=== PATIENT | female | born 2000 | race African-American/Black ===

== ENCOUNTER 2025-02-16 16:17 | Inpatient (IN) | payer MEDICAID, OTHER ==
[~2025-02-16] VITALS: Ht 160 cm; Wt 70.6 kg
--- NOTE | 2025-02-16 16:38 | ED.PDOC ---
GI ASSESSMENT HPI Comments This is a 24 year old female presenting to the ED with chief complaint of abdominal pain. Patient reports that she has been experiencing severe lower abdominal pain since 1100 this morning. Patient denies any N/V/D, fever, chills, dysuria, hematuria, or flank pain. Patient's LMP was on 01/16/25. Chief Complaint: Abdominal Pain Time Seen by MD: 16:36 Reviewed Notes: Allergies Allergies: Coded Allergies: NO KNOWN ALLERGIES (Unverified , 02/16/25) Information Source: Patient Mode of Arrival: Wheelchair Timing: Hours Duration: Since onset Prehospital treatment: None Quality: Sharp Vomitus: None Stool: Normal Severity: Moderate Recent: None Recent Hx of: None Pain Location: Diffuse Modifying Factors: Nothing Associated sign and symptoms: Abdominal Pain Past Medical History PAST MEDICAL HISTORY: Denies Surgical History: Denies all surgeries TECHNICAL AID History: No Pertinent TECHNICAL AID History Family History Family History: Reviewed,noncontributory to illness Social History Smoker: Non-Smoker Alcohol: Denies ETOH Use Drugs: Denies Drug Use Lives In: Home Constitutional: denies: chills, diaphoresis, fatigue, fever, malaise, sweats, weakness, others EENTM: denies: blurred vision, double vision, ear bleeding, ear discharge, ear drainage, ear pain, ear ringing, eye pain, eye redness, hearing loss, mouth pain, mouth swelling, nasal discharge, nose bleeding, nose congestion, nose pain, photophobia, tearing, throat pain, throat swelling, voice changes, others Respiratory: denies: cough, hemoptysis, orthopnea, SOB at rest, shortness of breath, SOB with excertion, stridor, wheezing, others Cardiovascular: denies: chest pain, dizzy spells, diaphoresis, Dyspnea on exertion, edema, irregular heart beat, left arm pain, lightheadedness, palpitations, PND, syncope, others Gastrointestinal: reports: abdominal pain; denies: abdomen distended, blood streaked bowels, constipated, diarrhea, dysphagia, difficulty swallowing, hematemesis, melena, nausea, poor appetite, poor fluid intake, rectal bleeding, rectal pain, vomiting, others Genitourinary: denies: abnormal vagina bleeding, burning, dyspareunia, dysuria, flank pain, frequency, hematuria, incontinence, pain, , vagina discharge, urgency, others Neurological: denies: dizziness, fainting, headache, left sided numbness, left sided weakness, numbness, paresthesia, pre-existing deficit, right sided numbness, right sided weakness, seizure, speech problems, tingling, tremors, weakness, others Musculoskeletal: denies: back pain, gout, joint pain, joint swelling, muscle pain, muscle stiffness, neck pain, others Integumetry: denies: bruises, change in color, change in hair/nails, dryness, laceration, lesions, lumps, rash, wounds, others Allergic/Immunocompromised: denies: Difficulty Healing, Frequent Infections, Hives, Itching, others Hematologic/Lymphatic: denies: anemia, blood clots, easy bleeding, easy bruising, swollen glands, others Endocrine: denies: excessive hunger, excessive sweating, excessive thirst, excessive urination, flushing, intolerance to cold, intolerance to heat, unexplained weight gain, unexplained weight loss, others Psychiatric: denies: anxiety, bipolar disorder, depression, hopeless, panic disorder, schizophrenia, sleepless, suicidal, others All Other Systems: Reviewed and Negative Physical Exam General Appearance: Moderate Distress, Normal HEENT: Normal ENT Inspection, PERRL/EOMI Neck: Full Range of Motion, Non-Tender, Normal, Normal Inspection Respiratory: Chest Non-Tender, Lungs Clear, No Accessory Muscle Use, No Respiratory Distress, Normal Breath Sounds Cardiovascular: Irregular, No Edema, No JVD, No Murmur, No Gallop, Normal Peripheral Pulses, Regular Rate/Rhythm Breast Exam: Deferred Gastrointestinal: Diffuse, Distended, No Organomegaly, No Pulsatile Mass, Normal Bowel Sounds, RLQ, Tenderness Genitalia: Deferred Pelvic: Deferred Rectal: Deferred Extremities: No calf tenderness, Normal capillary refill, Normal inspection, Normal range of motion, Non-tender, No pedal edema Neurologic: Alert, production machinist II-XII nml as Tested, No Motor Deficits, Normal Affect, Normal Mood, No Sensory Deficits Cerebellar Function: Normal Reflexes: Normal Skin: Dry, Normal Color, Warm Peripheral Pulses: 1+ carotid (R), 1+ carotid (L) Lymphatic: No Adenopathy Was a procedure done? Was a procedure done?: No GI differential Dx Differential Diagnosis: Appendicitis, Cholangitis, Constipation, Diverticular disease, Ectopic , Gastritis/PUD, Gastroenteritis, Inflammatory BD, Pancreatitis, UTI, Urolithiasis, Dehydration, Diabetes/ DKA, Drug toxicity, Electrolyte Imbalance, Food Poisoning, , Ischemic Bowel, Anemia X-Ray, Labs, Meds, VS Vital Signs Date Time Temp Pulse Resp B/P (MAP) Pulse Ox O2 Delivery O2 Flow Rate FiO2 02/16/25 22:37 90 16 98 Room Air* 0 21 02/16/25 22:08 90 16 104/69 02/16/25 22:03 90 16 104/69 (81) 98 02/16/25 16:22 98.3 116 16 94/64 96 98.3 Lab Test 02/16/25 16:49 Range/Units White Blood Count 16.4 H 4.4-10.8 10^3/uL Red Blood Count 4.90 4.0-5.20 10^6/uL Hemoglobin 13.8 12.2-16.2 g/dL Hematocrit 40.1 36.0-46.0 % Mean Corpuscular Volume 81.8 80.0-100.0 fL Mean Corpuscular Hemoglobin 28.2 28.0-32.0 pg Mean Corpuscular Hemoglobin Concent 34.4 32.0-36.0 g/dL Red Cell Distribution Width 14.0 11.8-14.3 % Platelet Count 423 140-450 10^3/uL Mean Platelet Volume 7.0 6.9-10.8 fL Neutrophils (%) (Auto) 82.0 H 37.0-80.0 % Lymphocytes (%) (Auto) 10.9 10.0-50.0 % Monocytes (%) (Auto) 5.4 0.0-12.0 % Eosinophils (%) (Auto) 1.2 0.0-7.0 % Basophils (%) (Auto) 0.5 0.0-2.0 % Neutrophils # (Auto) 13.4 H 1.6-8.6 10 ^3/uL Lymphocytes # (Auto) 1.8 0.4-5.4 10 ^3/uL Monocytes # (Auto) 0.9 0-1.3 10 ^3/uL Eosinophils # (Auto) 0.2 0-0.8 10 ^3/uL Basophils # (Auto) 0.1 0-0.2 10 ^3/uL Nucleated Red Blood Cells 0.0 % Sodium Level 139 136-145 mmol/L Potassium Level 4.2 3.5-5.1 mmol/L Chloride Level 108 H 98-107 mmol/L Carbon Dioxide Level 20 20-31 mmol/L Anion Gap 11 5-15 Blood Urea Nitrogen 10 9-23 mg/dL Creatinine 0.82 0.550-1.02 mg/dL Glomerular Filtration Rate Calc 102 >90 mL/min BUN/Creatinine Ratio 12.2 10.0-20.0 Serum Glucose 99 74-106 mg/dL Calcium Level 9.4 8.7-10.4 mg/dL Magnesium Level 1.9 1.6-2.6 mg/dL Total Bilirubin 0.4 0.2-1.0 mg/dL Aspartate Amino Transferase (AST) 16 13-40 U/L Alanine Aminotransferase (ALT) 17 7-40 U/L Alkaline Phosphatase 64 46-116 U/L Total Protein 7.3 5.7-8.2 g/dL Albumin 4.6 3.2-4.8 g/dL Lipase 34 12-53 U/L Beta HCG, Quantitative 0.3 L 1.5-4.2 mIU/mL Current Medications Medications (Trade) Dose Ordered Sig/Kamala Route Start Time Stop Time Status Last Admin Metoclopramide HCl (Reglan Injection) 10 mg ONCE ONCE IV 02/16/25 16:45 02/16/25 16:46 DC 02/16/25 22:07 Hydromorphone HCl (Dilaudid Injection) 0.5 mg ONCE ONCE IV 02/16/25 16:45 02/16/25 16:46 DC 02/16/25 22:08 X-Ray, Labs, Meds, VS Comment PATIENT CAME TO THE HOSPITAL WITH SEVERE ABDOMINAL PAIN DATA STILL PENDING DR. DUMONT TO FOLLOW UP Time of 1ST Reevaluation: 17:36 Reevaluation 1ST: Unchanged Time of 2ND Reevaluation: 18:01 Reevaluation 2ND: Unchanged Patient Education/Counseling: Diagnosis, Treatment, Prognosis Family Education/Counseling: Diagnosis, Treatment, Prognosis, No Family Present SEPSIS Sepsis Screen Date sepsis recognized/suspect: Feb 16, 2025 Time Sepsis recognized/suspect: 1624 Recent Procedure: No On Antibiotic Therapy: No Respiratory Rate >20: No Heart Rate >90: Yes Temp<36 C (96.8 F) or >38.3 C: No SBP <90 or MAP <65 mmHG: No New Acute Mental Status Change: No Is the patient on CPAP, BIPAP,: No Physician Orders Heplock Iv (02/16/25 16:36) Blood Pressure (02/16/25 16:36) Ct Ab Pel With Iv Con Only (02/16/25 22:45) Npo After Midnight (02/17/25 00:23) Npo (Nothing By Mouth) Diet (02/18/25 Breakfast) Zosyn Extended Infusion (02/17/25 00:30) Vital Signs Date Time Temp Pulse Resp B/P (MAP) Pulse Ox O2 Delivery O2 Flow Rate FiO2 02/16/25 22:37 90 16 98 Room Air* 0 21 02/16/25 22:08 90 16 104/69 02/16/25 22:03 90 16 104/69 (81) 98 02/16/25 16:22 98.3 116 16 94/64 96 98.3 Laboratory Tests Test 02/16/25 16:49 White Blood Count 16.4 10^3/uL (4.4-10.8) H Medications Medications Dose Ordered Sig/Kamala Route Start Time Stop Time Status Last Admin Dose Admin Hydromorphone HCl 0.5 mg ONCE ONCE IV 02/16/25 16:45 02/16/25 16:46 DC 02/16/25 22:08 Metoclopramide HCl 10 mg ONCE ONCE IV 02/16/25 16:45 02/16/25 16:46 DC 02/16/25 22:07 Departure 1 Departure Time of Disposition: 00:24 Impression: Primary Impression: Acute abdominal pain Additional Impression: Acute appendicitis Disposition: ADMITTED INPATIENT Admit to: Med Surg Condition: Guarded Discharged With: Self Comments CT and lab results reviewed. White blood cell count high at 16.4. CT of the abdomen and pelvis suggest acute appendicitis. Patient was given IV fluids and Zofran. Patient is NPO after midnight. Patient will need admission for supportive care and further workup. Patient will need General surgery consultation for possible appendectomy Critical Care Note Critical Care Time?: Yes (35 min-critical care time only) Critical care comment: Total critical care time: Approximately 36 minutes Due to a high probability of clinically significant, life threatening deterioration, the patient required my highest level of preparedness to intervene emergently and I personally spent this critical care time directly and personally managing the patient. This critical care time included obtaining a history; examining the patient; pulse oximetry; ordering and review of studies; arranging urgent treatment with development of a management plan; evaluation of patient's response to treatment; frequent reassessment; and, discussions with other providers. This critical care time was performed to assess and manage the high probability of imminent, life-threatening deterioration that could result in multi-organ failure. It was exclusive of separately billable procedures and treating other patients. Stability Stability form required: No Heart Score Heart Score: Heart Score Response (Comments) Value History N/A 0 EKG N/A 0 Age N/A 0 Risk Factors N/A 0 Troponin N/A 0 Total 0 I personally scribed for TONY COLLAZO MD ([email or web address]) on 02/16/25 at 16:38. Electronically submitted by Tanner Bah ([email or web address]). TONY COLLAZO MD Feb 16, 2025 16:38 MIKEY DUMONT MD Feb 17, 2025 00:26
[2025-02-16] MEDS ORDERED: SODIUM CHLORIDE 0.9% 1,000 ML IV ONE (16:45)
[2025-02-16 17:02] LABS: Hematocrit 40.1 % (36.0-46.0); Hemoglobin 13.8 g/dL (12.2-16.2); Mean Corpuscular Hemoglobin 28.2 pg (28.0-32.0); Mean Corpuscular Volume 81.8 fL (80.0-100.0); Nucleated Red Blood Cells % 0.0 %
[2025-02-16 17:22] LABS: Alanine Aminotransferase 17 U/L (7-40); Albumin 4.6 g/dL (3.2-4.8); Alkaline Phosphatase 64 U/L (46-116); Anion Gap 11 (5-15); BUN/Creatinine Ratio 12.2 (10.0-20.0); Blood Urea Nitrogen 10 mg/dL (9-23); Calcium 9.4 mg/dL (8.7-10.4); Carbon Dioxide 20 mmol/L (20-31); Glucose 99 mg/dL (74-106); Lipase 34 U/L (12-53); Magnesium 1.9 mg/dL (1.6-2.6); Potassium 4.2 mmol/L (3.5-5.1); Sodium 139 mmol/L (136-145); Total Protein 7.3 g/dL (5.7-8.2)
[2025-02-16 17:23] LABS: Bilirubin, Total 0.4 mg/dL (0.2-1.0); Chloride 108 mmol/L (98-107)
[2025-02-16] MEDS: METOCLOPRAMIDE HCL 5MG/ml INJ 2ml VIAL IV ONE (22:07)
[2025-02-16] MEDS: HYDROmorphone HCL 2 MG/ML VL/or syr IV ONE (22:08)
[2025-02-16 22:37] VITALS: PULSE 90; RESP 16; O2SAT 98
[2025-02-17] VITALS (7 sets, daily range): BP systolic 95–112; BP diastolic 65–81; PULSE 70–88; RESP 16–18; TEMP 97.7–98.3; O2SAT 96–99
--- NOTE | 2025-02-17 00:10 | DVH ---
CLINICAL HISTORY: abd pain TECHNIQUE: CT of the abdomen and pelvis was performed without intravenous contrast. 100 mL Omnipaque 300 injected This exam was performed according to our departmental dose optimization program. Up-to-d ate CT equipment and radiation dose reduction techniques are utilized as appropriate. 6.11 CTDI: 6.11 DLP: 345.22 WID: COMPARISON: None FINDINGS: Lower Thorax: Unremarkable. Liver and Biliary system: Mild hepatomegaly measuring 18 cm craniocaudal. Otherwise unremarkable. Spleen: Unremarkable. Adrenal Glands and Kidneys: Unremarkable. Pancreas and Retroperitoneum: Unremarkable. Aorta and Major Vessels: Unremarkable. Bowel, Mesentery and Peritoneal space: Normal caliber small and large bowel. There is a hyperemic and mildly dilated appendix on series 2, image 63 and series 601, image 37. Scattered fluid containing p redominantly distal small bowel loops. There is no free air or fluid collection. There is mild enhanc ement of fluid-filled pelvic small bowel loops. Mild ascites predominantly in the pelvis. Pelvis: Unremarkable. Abdominal wall and Osseous Structures: No destructive osseous lesion. IMPRESSION: 1. Thickened and hyperemic appendix which is mildly dilated suggesting acute appendicitis. 2. Scattered fluid-filled and mild enhancement of pelvic small bowel loops which may be reactive or r elated to enteritis. 3. Mild ascites. 4. Mild hepatomegaly.
[2025-02-17] MEDS: IOHEXOL 300 MG/ML 100ML BOTTLE IJ ONE (01:38)
--- NOTE | 2025-02-17 04:30 | DVHHP2 ---
History of Present Illness Reason for Visit: Abdominal pain History of Present Illness 24-year-old female presents for evaluation of abdominal pain. Patient endorses a one day history of right lower quadrant sharp abdominal pain. Denies nausea or vomiting. States having intermittent chills. Currently rates the pain at 7/10 intensity. Past Medical History Denies Past Surgical History Denies Family History Noncontributory Smoke: No ALCOHOL: none Drugs: None Lives: with Family Review of Systems Review of Systems Review of systems are currently negative otherwise addressed in HPI. Allergies: Coded Allergies: NO KNOWN ALLERGIES (Unverified , 02/16/25) Exam Vital Signs Vital Signs Date Time Temp Pulse Resp B/P (MAP) Pulse Ox O2 Delivery O2 Flow Rate FiO2 02/16/25 22:37 90 16 98 Room Air* 0 21 02/16/25 22:08 104/69 02/16/25 16:22 98.3 98.3 Exam Gen: 24-year-old female in mild distress Skin: Warm, dry, normal color and texture, no rash. HEENT: Normocephalic atraumatic, mucous membranes moist and pink. Neck: Cervical and supraclavicular nodes normal without enlargement, trachea is midline, thyroid gland is normal without masses. Pulmonary: Clear to auscultation and percussion bilaterally. Cardiac: Regular rate and rhythm. No murmur Abdomen: Soft, right lower quadrant tenderness, nondistended, bowel sounds present all 4 quadrants, no guarding, no rigidity, no organomegaly. Extremities: No cyanosis, clubbing, no edema Neuro: Cranial nerves II through XII grossly intact, normal affect and speech, no focal motor deficits. Labs/Xrays AGE / SEX: 24 / F ADM STATUS: DEP ER SERVICE ORDERING PHYSICIAN: MIKEY DUMONT MD PROCEDURE(s): ABPLIV - CT AB PEL WITH IV CON ONLY REASON: abd pain ORDER NUMBER(s): [id number], ACCESSION NUMBER(s): [id number] CLINICAL HISTORY: abd pain TECHNIQUE: CT of the abdomen and pelvis was performed without intravenous contrast. 100 mL Omnipaque 300 injected This exam was performed according to our departmental dose optimization program. Up-to-date CT equipment and radiation dose reduction techniques are utilized as appropriate. 6.11 CTDI: 6.11 DLP: 345.22 WID: COMPARISON: None FINDINGS: Lower Thorax: Unremarkable. Liver and Biliary system: Mild hepatomegaly measuring 18 cm craniocaudal. Otherwise unremarkable. Spleen: Unremarkable. Adrenal Glands and Kidneys: Unremarkable. Pancreas and Retroperitoneum: Unremarkable. Aorta and Major Vessels: Unremarkable. Bowel, Mesentery and Peritoneal space: Normal caliber small and large bowel. There is a hyperemic and mildly dilated appendix on series 2, image 63 and series 601, image 37. Scattered fluid containing predominantly distal small bowel loops. There is no free air or fluid collection. There is mild enhancement of fluid-filled pelvic small bowel loops. Mild ascites predominantly in the pelvis. Pelvis: Unremarkable. Abdominal wall and Osseous Structures: No destructive osseous lesion. IMPRESSION: 1. Thickened and hyperemic appendix which is mildly dilated suggesting acute appendicitis. 2. Scattered fluid-filled and mild enhancement of pelvic small bowel loops which may be reactive or related to enteritis. 3. Mild ascites. 4. Mild hepatomegaly. Labs Test 02/16/25 16:49 Range/Units White Blood Count 16.4 H 4.4-10.8 10^3/uL Red Blood Count 4.90 4.0-5.20 10^6/uL Hemoglobin 13.8 12.2-16.2 g/dL Hematocrit 40.1 36.0-46.0 % Mean Corpuscular Volume 81.8 80.0-100.0 fL Mean Corpuscular Hemoglobin 28.2 28.0-32.0 pg Mean Corpuscular Hemoglobin Concent 34.4 32.0-36.0 g/dL Red Cell Distribution Width 14.0 11.8-14.3 % Platelet Count 423 140-450 10^3/uL Mean Platelet Volume 7.0 6.9-10.8 fL Neutrophils (%) (Auto) 82.0 H 37.0-80.0 % Lymphocytes (%) (Auto) 10.9 10.0-50.0 % Monocytes (%) (Auto) 5.4 0.0-12.0 % Eosinophils (%) (Auto) 1.2 0.0-7.0 % Basophils (%) (Auto) 0.5 0.0-2.0 % Neutrophils # (Auto) 13.4 H 1.6-8.6 10 ^3/uL Lymphocytes # (Auto) 1.8 0.4-5.4 10 ^3/uL Monocytes # (Auto) 0.9 0-1.3 10 ^3/uL Eosinophils # (Auto) 0.2 0-0.8 10 ^3/uL Basophils # (Auto) 0.1 0-0.2 10 ^3/uL Nucleated Red Blood Cells 0.0 % Sodium Level 139 136-145 mmol/L Potassium Level 4.2 3.5-5.1 mmol/L Chloride Level 108 H 98-107 mmol/L Carbon Dioxide Level 20 20-31 mmol/L Anion Gap 11 5-15 Blood Urea Nitrogen 10 9-23 mg/dL Creatinine 0.82 0.550-1.02 mg/dL Glomerular Filtration Rate Calc 102 >90 mL/min BUN/Creatinine Ratio 12.2 10.0-20.0 Serum Glucose 99 74-106 mg/dL Calcium Level 9.4 8.7-10.4 mg/dL Magnesium Level 1.9 1.6-2.6 mg/dL Total Bilirubin 0.4 0.2-1.0 mg/dL Aspartate Amino Transferase (AST) 16 13-40 U/L Alanine Aminotransferase (ALT) 17 7-40 U/L Alkaline Phosphatase 64 46-116 U/L Total Protein 7.3 5.7-8.2 g/dL Albumin 4.6 3.2-4.8 g/dL Lipase 34 12-53 U/L Beta HCG, Quantitative 0.3 L 1.5-4.2 mIU/mL SEPSIS Sepsis Screen Date sepsis recognized/suspect: Feb 16, 2025 Time Sepsis recognized/suspect: 2236 Recent Procedure: No On Antibiotic Therapy: No Respiratory Rate >20: No Heart Rate >90: No Temp<36 C (96.8 F) or >38.3 C: No SBP <90 or MAP <65 mmHG: No New Acute Mental Status Change: No Is the patient on CPAP, BIPAP,: No Physician Orders Ct Ab Pel With Iv Con Only (02/16/25 22:45) Npo (Nothing By Mouth) Diet (02/18/25 Breakfast) Admit (02/17/25 04:16) * Surgical Consult (02/17/25 ) Zosyn Extended Infusion (02/17/25 06:00) NS (02/17/25 04:30) PTPTT (02/17/25 04:23) Type And Screen (02/17/25 04:23) Chest Xray 1 View (02/17/25 04:23) Complete Blood Count (02/17/25 04:23) Basic Metabolic Panel (02/17/25 04:23) Ondansetron Hcl (Zofran) (02/17/25 04:30) Condition: Stable (02/17/25 04:23) Bedrest With Bathroom Privileg (02/17/25 04:23) Morphine Sulfate Injection (02/17/25 04:30) Vital Signs Date Time Temp Pulse Resp B/P (MAP) Pulse Ox O2 Delivery O2 Flow Rate FiO2 02/16/25 22:37 90 16 98 Room Air* 0 21 02/16/25 22:08 90 16 104/69 02/16/25 22:03 90 16 104/69 (81) 98 Laboratory Tests Test 02/16/25 16:49 White Blood Count 16.4 10^3/uL (4.4-10.8) H Medications Medications Dose Ordered Sig/Kamala Route Start Time Stop Time Status Last Admin Dose Admin Hydromorphone HCl 0.5 mg ONCE ONCE IV 02/16/25 16:45 02/16/25 16:46 DC 02/16/25 22:08 0.5 MG Metoclopramide HCl 10 mg ONCE ONCE IV 02/16/25 16:45 02/16/25 16:46 DC 02/16/25 22:07 10 MG Assessment/Plan Assessment/Plan Assessment Acute abdominal pain Acute appendicitis Leukocytosis Plan Admit the patient to [facility] to the hospitalist Surgical consultation NPO Zosyn Maintenance IV fluids Pain management Continue treatment per orders. Plan discussed with: Patient My Orders Orders - EARL SHANNON AGACNP Procedure Category Date Status Time Admit ADMIT 02/17/25 Transmitted 04:16 * Surgical Consult CONS 02/17/25 Verified Zosyn Extended PHA 02/17/25 Verified Infusion 06:00 NS PHA 02/17/25 Verified 04:30 PTPTT LAB 02/17/25 Verified 04:23 Type And Screen BBK 02/17/25 Verified 04:23 Chest Xray 1 View XY 02/17/25 Verified 04:23 Complete Blood Count LAB 02/17/25 Verified 04:23 Basic Metabolic Panel LAB 02/17/25 Verified 04:23 Ondansetron Hcl PHA 02/17/25 Verified (Zofran) 04:30 Condition: Stable BETHANY 02/17/25 Verified 04:23 Bedrest With Bathroom BETHANY 02/17/25 Verified Privileg 04:23 Morphine Sulfate PHA 02/17/25 Verified Injection 04:30 Date of Service: Feb 17, 2025 Billing Provider: EARL SHANNON Common Visit Codes: [id number] INP/OBS CARE (HIGH) EARL SHANNON Feb 17, 2025 04:30
[2025-02-17] MEDS: PIPERACILLIN-TAZOB 3.375GM 100 ML IV ONE (04:41)
[2025-02-17] MEDS: MORPHINE SULFATE INJ 2 MG/ml SYRG IV PRN (05:03)
--- NOTE | 2025-02-17 05:03 | DVH ---
CHEST RADIOGRAPH Indication: Pain Technique: Single frontal view of the chest was obtained COMPARISON: None FINDINGS: Lines and Tubes: None Lungs: Clear Pleura: No effusion. No pneumothorax. Cardiomediastinal contours: Unremarkable Bones: Unremarkable IMPRESSION: No acute disease.
[2025-02-17] MEDS: ONDANSETRON HCL 4 MG/2 ML VIAL IV PRN (05:05)
[2025-02-17] MEDS: SODIUM CHLORIDE 0.9% 1,000 ML IV ONE (05:17)
[2025-02-17] MEDS: PIPERACILLIN-TAZOB 3.375GM 100 ML IV SCH (05:17)
[2025-02-17 05:49] LABS: Anion Gap 9 (5-15); Carbon Dioxide 24 mmol/L (20-31); Chloride 105 mmol/L (98-107); Hematocrit 39.4 % (36.0-46.0); Hemoglobin 13.4 g/dL (12.2-16.2); Mean Corpuscular Hemoglobin 28.1 pg (28.0-32.0); Mean Corpuscular Volume 82.8 fL (80.0-100.0); Nucleated Red Blood Cells % 0.0 %; Potassium 3.6 mmol/L (3.5-5.1); Sodium 138 mmol/L (136-145)
[2025-02-17 05:50] LABS: Calcium 9.3 mg/dL (8.7-10.4)
[2025-02-17 05:55] LABS: Glucose 85 mg/dL (74-106)
[2025-02-17 05:59] LABS: INR 1.05 (0.9-1.15); Partial Thromboplastin Time 30.8 SEC (24.5-34.5); Prothrombin Time 11.1 sec (9.3-11.8)
[2025-02-17 06:02] LABS: BUN/Creatinine Ratio 7.2 (10.0-20.0); Blood Urea Nitrogen < 5 mg/dL (9-23)
[2025-02-17] MEDS: KETOROLAC TROMETH 30 MG/ML 1ML VIAL IV PRN (09:09)
--- NOTE | 2025-02-17 10:05 | DVHINCON2 ---
Date of service: Feb 17, 2025 Reason for Consultation appendicitis History of Present Illness HPI 24 year old presented to the Er with complaint of right lower quadrant pain . The patient states the pain started yesterday at 11am and progressively got worse. She states the pain is constant 10/10 associated with nausea. Home Meds No Active Prescriptions or Reported Meds Chief Complaint of Abdominal/F: Abdominal pain, Nausea Abdominal Pain Radiation: RLQ Past Medical History Cardiac: No pertinent Hx Pulmonary: No pertinent Hx Central Nervous System: No pertinent Hx GI: No pertinent Hx Hemotology/Oncology: No pertinent Hx Hepatobiliary: No pertinent Hx Psychiatric: No pertinent Hx Musculoskeletal: No pertinent Hx Rheumotologic: No pertinent Hx Infectious Disease: No peritnent Hx ENT: No pertinent Hx Renal/: No pertinent Hx Endocrine: No pertinent Hx Dermatology: No pertinent Hx Past Surgical History: No pertinent Hx Patient Family History: Patient reports no known family medical history. Smoker: No Hx (Negative) Alocohol: None Drugs: None Lives with: With family Review of Systems Constitutional: No symptom reported Ears, Nose, & Throat: No symptom reported Eyes: No symptom reported Pulmonary/Respiratory: No symptom reported Cardiovascular: No symptom reported Gastrointestinal: Nausea, Abdominal Pain Genitourinary: No symptom reported Musculoskeletal: No symptom reported Skin: No symptom reported Psychiatric: No symptom reported Endocrine: No symptom reported Hemotologic/Lymphatic: No symptom reported H&P Exam Vital Signs Vital Signs Date Time Temp Pulse Resp B/P (MAP) Pulse Ox O2 Delivery O2 Flow Rate FiO2 02/17/25 08:56 97.7 77 16 95/65 (75) 99 97.7 02/16/25 22:37 Room Air* 0 21 General Appeara: Well developed, Well nourished, Normal Appearance Head Exam: Normal inspection Neck Exam: Normal inspection Eye Exam: bilateral eye PERRL Pulmonary/Respiratory: Normal inspection, Normal breath sounds Cardiovascular/Chest: Normal inspection, Regular rate, Normal Rhythm Abdominal Exam: Normal bowel sounds Abdominal Pain Onset Location: RLQ Neuro/Mental St: Alert, Oriented Appearance: Appropriate appearance Eye contact/ Speech: Cooperative, Good eye contact, Normal speech Skin Exam: Normal inspection Labs/Xrays Labs Test 02/17/25 05:00 02/16/25 16:49 Range/Units White Blood Count 13.8 H 4.4-10.8 10^3/uL Red Blood Count 4.76 4.0-5.20 10^6/uL Hemoglobin 13.4 12.2-16.2 g/dL Hematocrit 39.4 36.0-46.0 % Mean Corpuscular Volume 82.8 80.0-100.0 fL Mean Corpuscular Hemoglobin 28.1 28.0-32.0 pg Mean Corpuscular Hemoglobin Concent 34.0 32.0-36.0 g/dL Red Cell Distribution Width 14.2 11.8-14.3 % Platelet Count 367 140-450 10^3/uL Mean Platelet Volume 7.1 6.9-10.8 fL Neutrophils (%) (Auto) 78.2 37.0-80.0 % Lymphocytes (%) (Auto) 13.9 10.0-50.0 % Monocytes (%) (Auto) 6.8 0.0-12.0 % Eosinophils (%) (Auto) 1.0 0.0-7.0 % Basophils (%) (Auto) 0.1 0.0-2.0 % Neutrophils # (Auto) 10.8 H 1.6-8.6 10 ^3/uL Lymphocytes # (Auto) 1.9 0.4-5.4 10 ^3/uL Monocytes # (Auto) 0.9 0-1.3 10 ^3/uL Eosinophils # (Auto) 0.1 0-0.8 10 ^3/uL Basophils # (Auto) 0 0-0.2 10 ^3/uL Nucleated Red Blood Cells 0.0 % Prothrombin Time 11.1 9.3-11.8 sec Prothrombin Time INR 1.05 0.9-1.15 Activated Partial Thromboplast Time 30.8 24.5-34.5 SEC Sodium Level 138 136-145 mmol/L Potassium Level 3.6 3.5-5.1 mmol/L Chloride Level 105 98-107 mmol/L Carbon Dioxide Level 24 20-31 mmol/L Anion Gap 9 5-15 Blood Urea Nitrogen < 5 L 9-23 mg/dL Creatinine 0.69 0.550-1.02 mg/dL Glomerular Filtration Rate Calc 123 >90 mL/min BUN/Creatinine Ratio 7.2 L 10.0-20.0 Serum Glucose 85 74-106 mg/dL Calcium Level 9.3 8.7-10.4 mg/dL Thyroid Stimulating Hormone (TSH) 0.82 0.55-4.78 uIU/mL Magnesium Level 1.9 1.6-2.6 mg/dL Total Bilirubin 0.4 0.2-1.0 mg/dL Aspartate Amino Transferase (AST) 16 13-40 U/L Alanine Aminotransferase (ALT) 17 7-40 U/L Alkaline Phosphatase 64 46-116 U/L Total Protein 7.3 5.7-8.2 g/dL Albumin 4.6 3.2-4.8 g/dL Lipase 34 12-53 U/L Beta HCG, Quantitative 0.3 L 1.5-4.2 mIU/mL Assessment/Plan Plan patient complaint of abdominal pain which started yesterday associated with nausea. right lower quadrant tender to palpation denies nausea or vomiting at this time reviewed notes and image reports Plan: Laparoscopic possibly open appendectomy explained to patient risks and complications in detail all questions answered Plan discussed with: Patient, Other (Dr. Brito) Visit Coding Surgery Date of Service if different f: Feb 17, 2025 Billing Provider: JAYSHREE BRITO MD Surgery Visit Codes: 62113 - INP CONSULT <80 MIN JOJO WALDEN [employer] Feb 17, 2025 10:05
[2025-02-17] MEDS: SODIUM CHLORIDE 0.9% 500 ML IV ONE (13:41)
[2025-02-17] MEDS: SODIUM CHLORIDE 0.9% 1,000 ML IV SCH (13:41)
[2025-02-17 14:09] LABS: Urine Protein, UAD TRACE (Negative)
[2025-02-17] MEDS ORDERED: ONDANSETRON HCL 4 MG/2 ML VIAL ONE (14:12)
[2025-02-17] MEDS ORDERED: PROPOFOL 10 MG/ML 20 ML IV ONE (14:12)
[2025-02-17] MEDS ORDERED: ROCURONIUM 10MG/ML 10ML VIAL IV ONE (14:12)
[2025-02-17] MEDS ORDERED: LIDOCAINE 2% (LOCAL ANESTH.) PF 5ml SDV ONE (14:12)
[2025-02-17] MEDS ORDERED: MIDAZOLAM HCL 2MG/2ML 2ml VIAL (1mg/ml) ONE (14:12)
[2025-02-17] MEDS ORDERED: HYDROmorphone HCL 2 MG/ML VL/or syr ONE (14:12)
[2025-02-17] MEDS ORDERED: KETAMINE 50mg/ML 1ml syringe ONE (14:12)
[2025-02-17] MEDS ORDERED: fentaNYL CITRATE 100 MCG/2 ML VL ONE (14:12)
[2025-02-17] MEDS: ceFAZolin 2 GM/D5W50ml 50 ML IV ONE (14:45)
[2025-02-17] MEDS ORDERED: SUGAMMADEX 200mg/2ml Vial (100MG/ML) IV ONE (15:13)
[2025-02-17] MEDS: Lidocaine/Epinephrine 1%-1:100,000 30ML VL ONE (15:15)
[2025-02-17] MEDS: BUPIVACAINE 0.5% MPF INJ 30ML SDV IJ ONE (15:15)
[2025-02-17] MEDS ORDERED: HYDROmorphone HCL 2 MG/ML VL/or syr IV PRN (15:45)
[2025-02-17] MEDS ORDERED: MORPHINE SULFATE 4 MG/ML SYR/VIAL IV PRN (15:45)
[2025-02-17] MEDS: KETOROLAC TROMETH 30 MG/ML 1ML VIAL IV ONE (15:45)
[2025-02-17] MEDS ORDERED: METOCLOPRAMIDE HCL 5MG/ml INJ 2ml VIAL IV PRN (15:45)
--- NOTE | 2025-02-17 15:52 | DVHPNRES ---
Progress Note Date Seen: Feb 17, 2025 Resident Creating Document: JOSSY TORRES RESIDENT Medical Necessity Reason Pt with a Central, PICC or Fol: No Subjective Review of Systems Rosie Vegas is a 24-year old female presented to the ER with right lower quadrant pain radiatng to the umbilicus and left lower abdomen, associated with nausea, increased by movements, coughing and respiration. She reports having burning sensation during urination and frequency as well. She denies any chest pain, SOB, fever or any other complaints today. PMH: Denies PSH: Denies Family history: Non-contributory Smoking, alcohol, drugs: Never The patient was seen and examined at bedside. Overnight events were reviewed. Objective vital signs Vital Sign Date Time Temp Pulse Resp B/P (MAP) Pulse Ox O2 Delivery O2 Flow Rate FiO2 02/17/25 13:00 98.1 73 16 102/65 (77) 99 98.1 02/16/25 22:37 Room Air* 0 21 medications Current Medications Medications Dose Ordered Sig/Akmala Route Start Time Stop Time Status Last Admin Dose Admin Piperacillin Sod/ Tazobactam Sod 100 ml @ 25 mls/hr Q8H IV 02/17/25 05:00 02/17/25 05:17 25 MLS/HR Ondansetron HCl 4 mg Q4HP PRN IV 02/17/25 04:30 02/17/25 05:05 4 MG Morphine Sulfate 2 mg Q4HPRN PRN IV 02/17/25 04:30 02/17/25 05:03 2 MG Sodium Chloride 1,000 ml @ 75 mls/hr [id number] IV 02/17/25 08:00 02/17/25 13:41 75 MLS/HR Ketorolac Tromethamine 15 mg Q6HPRN PRN IV 02/17/25 08:45 02/20/25 22:00 02/17/25 09:09 15 MG Hydromorphone HCl 0.5 mg Q10M PRN IV 02/17/25 15:45 02/17/25 16:26 Morphine Sulfate 2 mg Q4H PRN IV 02/17/25 15:45 02/17/25 19:46 Hydromorphone HCl 0.25 mg Q10M PRN IV 02/17/25 15:45 02/17/25 16:16 Morphine Sulfate 1 mg Q30M PRN IV 02/17/25 16:27 02/17/25 18:28 Examination Pt is lying on bed General Appearance: Alert, Oriented X3, Cooperative, Mild distress HEENT: Atraumatic, Mucous membranes moist/pink Respiratory: Clear to auscultation, Normal air movement, No added sounds Cardiovascular: Regular rate, Normal S1, Normal S2, No murmurs Abdominal/ : Active bowel sounds, Soft, no distention, diffuse abdominal tenderness more prominent in the hypogastric and right lower of the abdomen. Mcburney's point tenderness and rebound tenderness positive. Rovsing sign is positive. obturator sign positive. Extremities: No edema, Normal pulses, No tenderness/swelling Skin: No Significant rash, except past surgical scars Neuro: Normal speech, sensorimotor deficits none Psych/Mental Status: Mental status NL, Mood NL Nurse was there as joint sealer during examination laboratory and microbiology Laboratory Tests 02/17/25 05:00 Test 02/17/25 05:00 Range/Units Serum Glucose 85 74-106 mg/dL Problem List/Assessment/Plan Problem List/Assessment/Plan Sepsis secondary to appendicitis versus UTI Currently under empiric IV antibiotic (Zosyn) Required IV fluid resuscitation Ordered cultures (blood and urine). Acute abdominal pain due to appendicitis - s/p appendectomy Mild hepatomegaly Mild ascites ruled out. CT abdomen and pelvis: Appendicitis, reactive enteritis, mild hepatomegaly, mild ascites Symptomatic management was done by morphine and ondansetron. Currently under empiric IV antibiotic (Zosyn) Patient was kept NPO, required IV fluid resuscitation. referral specialist consulted: Surgical candidate. Laparoscopy and laparoscopic appendectomy successfully performed 02/17/2025 UTI Urinalysis positive for esterase and presents increased WBCs. Urine culture Currently under empiric IV antibiotic (Zosyn) GI prophylaxis: Pantoprazole DVT prophylaxis: Enoxaparin Diet: NPO, resume diet as per surgery recommendations Goals of care discussed with the patient for more than 27 minutes: Full code status Case discussed with Dr. Bartlett , patient and RN Plan discussed with: Patient, Other (RN) JOSSY TORRES RESIDENT Feb 17, 2025 15:52 NATASHA HONEYCUTT RESIDENT Feb 19, 2025 06:33
--- NOTE | 2025-02-17 15:52 | DVHOP ---
DATE OF SURGERY: 02/17/2025 PREOPERATIVE DIAGNOSIS: Appendicitis. POSTOPERATIVE DIAGNOSIS: Appendicitis. SURGEON: Juan Brito MD WIRE DRAWING DIE MAKER: Uriel Lo. ANESTHESIA: General endotracheal. ANESTHESIOLOGIST: Dr. Vidales. PROCEDURE: Laparoscopy and laparoscopic appendectomy. DESCRIPTION OF PROCEDURE: Under general endotracheal anesthesia with the patient's skin prepped and draped, a supraumbilical incision was made and Veress needle inserted by the hanging drop technique to establish pneumoperitoneum to 15 mmHg pressure by insufflation with carbon dioxide. With the abdomen fully distended, the needle was removed and replaced with a 5 mm trocar port through which a 0-degree laparoscope was inserted and under direct vision, 5 and 10 mm ports inserted through the abdominal wall in the midline. The patient's laparoscopy revealed no obvious unexpected pathology. There was evidence of slight colonic ileus; however, no evidence of small bowel ileus or abscess formation were encountered. The appendix was acutely distended and inflamed. It was placed on tension with a Shazia grasper and traced to its confluence with the cecum, at the base of the appendix at the cecal confluence, it was cross-clamped and divided with an Endo MEHDI stapler equipped with vascular vickie. The fully mobilized appendix and mesoappendix were placed into a specimen extraction bag and removed through the 10 mm port site. Subsequently, right lower quadrant was inspected for hemostasis, which was found to be complete. At the termination of the procedure, there was no evidence of bleeding from either the appendicectomy site or from the port sites. Instrumentation was withdrawn. Pneumoperitoneum was evacuated. Fascial defect was closed using 0 Vicryl. Wounds were approximated using Monocryl sutures, Dermabond glue, and Steri-Strips. The patient tolerated the procedure well and left the operating room in stable condition following an accurate needle and sponge count. The patient's grandmother was thoroughly informed by phone. MD HELLEN Arriaga/CAROLINA TID: [id number] RECEIPT: [id number]
[2025-02-17] MEDS: HYDROmorphone HCL 2 MG/ML VL/or syr IV PRN (16:05)
[2025-02-17] MEDS ORDERED: MORPHINE SULFATE INJ 2 MG/ml SYRG IV PRN (16:27)
[2025-02-18 01:00] VITALS: BP 116/79; PULSE 84; RESP 18; TEMP 98; O2SAT 95
[2025-02-18 05:00] VITALS: BP 103/72; PULSE 89; RESP 18; TEMP 97.6; O2SAT 95
--- NOTE | 2025-02-18 07:17 | DVHPN2 ---
Subjective Date Seen: Feb 18, 2025 Post op day Post op day: 1 Patient reports: No new complaints Nursing reports: No new complaints General: Normal HNT: Normal Cardiovascular: Normal Respiratory: Normal Gastrointestinal: Abdominal Pain Genitourinary: Normal Musculoskeletal: Normal Neurological: Normal Objective Vitals Vital Sign Date Time Temp Pulse Resp B/P (MAP) Pulse Ox O2 Delivery O2 Flow Rate FiO2 02/18/25 05:43 89 18 103/72 02/18/25 05:00 97.6 95 97.6 02/17/25 20:00 Room Air* 0 21 Total Intake and Output 02/17/25 02/17/25 02/18/25 15:00 23:00 07:00 Intake Total 1150 ml 0 ml 240 ml Balance 1150 ml 0 ml 240 ml Medications Current Medications Medications Dose Ordered Sig/Kamala Route Start Time Stop Time Status Last Admin Dose Admin Piperacillin Sod/ Tazobactam Sod 100 ml @ 25 mls/hr Q8H IV 02/17/25 05:00 02/18/25 04:07 25 MLS/HR Ondansetron HCl 4 mg Q4HP PRN IV 02/17/25 04:30 02/17/25 18:05 4 MG Morphine Sulfate 2 mg Q4HPRN PRN IV 02/17/25 04:30 02/18/25 05:13 2 MG Sodium Chloride 1,000 ml @ 75 mls/hr [id number] IV 02/17/25 08:00 02/17/25 20:42 75 MLS/HR Ketorolac Tromethamine 15 mg Q6HPRN PRN IV 02/17/25 08:45 02/20/25 22:00 02/18/25 01:47 15 MG General: Normal, Well developed Head/Eyes: Normal ENT: Normal Neck: Normal Lungs: Normal Cardiovascular: Normal Abdominal: Normal Musculoskeletal: Normal Extremities: Normal Skin: Normal Labs and Microbiology Test 02/18/25 06:35 Range/Units Serum Glucose Pending Ass/Plan Problem List Acute abdominal pain due to appendicitis ruled out. CT abdomen and pelvis: Appendicitis, reactive enteritis, mild hepatomegaly, mild ascites Symptomatic management was done by morphine and ondansetron. Patient was kept NPO, IV fluid was given Zosyn was started. Surgery consult was done. Laparoscopy and laparoscopic appendectomy successfully performed today. Mild hepatomegaly Mild ascites Monitor LFTs Outpatient follow up with GI. GI prophylaxis: Not indicated DVT prophylaxis: Not indicated Diet: NPO, resume diet as per surgery recommendations Goals of care discussed with the patient for more than 27 minutes: Full code status Case discussed with Dr. Bartlett , patient and community leader/Plan 02/18/2025 reports vomiting last night after clear liquids abdomen soft , non distended, appropriately tender passing gas,no BM wounds clean dry and intact Plan: ambulate start with small sips of fluids continue IV antibiotics Prognosis: Good Plan discussed with patient, Nurse , Dr. Brito Visit Coding Surgery Date of Service if different f: Feb 18, 2025 Billing Provider: JAYSHREE BRITO MD Surgery Visit Codes: [id number] INP/OBS CARE(HIGH) JOJO WALDEN ENVIRONMENTAL COMPLIANCE ENGINEER Feb 18, 2025 07:17
[2025-02-18 07:30] LABS: Hematocrit 34.2 % (36.0-46.0); Hemoglobin 12.1 g/dL (12.2-16.2); Mean Corpuscular Hemoglobin 28.8 pg (28.0-32.0); Mean Corpuscular Volume 81.5 fL (80.0-100.0); Nucleated Red Blood Cells % 0.0 %
[2025-02-18 07:35] LABS: Calcium 8.8 mg/dL (8.7-10.4); Chloride 106 mmol/L (98-107); Sodium 139 mmol/L (136-145)
[2025-02-18 07:36] LABS: Anion Gap 9 (5-15); Carbon Dioxide 24 mmol/L (20-31)
[2025-02-18 07:42] LABS: Glucose 74 mg/dL (74-106); Potassium 3.4 mmol/L (3.5-5.1)
[2025-02-18 07:56] LABS: BUN/Creatinine Ratio 6.9 (10.0-20.0); Blood Urea Nitrogen < 5 mg/dL (9-23)
[2025-02-18 08:45] VITALS: BP 105/74; PULSE 73; RESP 16; TEMP 98.7; O2SAT 95
[2025-02-18 12:42] VITALS: BP 109/83; PULSE 85; RESP 16; TEMP 98.1; O2SAT 99
[2025-02-18] MEDS: POTASSIUM CHL 20MEQ/100ML 100 ML IV SCH (14:01)
--- NOTE | 2025-02-18 14:10 | DVHPNRES ---
Progress Note Date Seen: Feb 18, 2025 Resident Creating Document: JOSSY TORRES Medical Necessity Reason Pt with a Central, PICC or Fol: No Subjective Review of Systems The patient was seen and examined at bedside. Overnight events werre reviewed. 24-year-old female, day 1 S/P appendectomy complaining of pain at the surgical site, she is tolerating clear liquid, reports passage of flatus. She reports abdominal binder helps her with the pain. PMH: Nothing significant PSH: None Family history: Non-contributory Smoking, alcohol, drugs: Never Code status: Full code Objective vital signs Vital Sign Date Time Temp Pulse Resp B/P (MAP) Pulse Ox O2 Delivery O2 Flow Rate FiO2 02/18/25 12:42 98.1 85 16 109/83 (92) 99 98.1 02/18/25 07:40 Room Air* 0 21 Total Intake and Output 02/17/25 02/17/25 02/18/25 15:00 23:00 07:00 Intake Total 1150 ml 0 ml 240 ml Balance 1150 ml 0 ml 240 ml medications Current Medications Medications Dose Ordered Sig/Kamala Route Start Time Stop Time Status Last Admin Dose Admin Piperacillin Sod/ Tazobactam Sod 100 ml @ 25 mls/hr Q8H IV 02/17/25 05:00 02/18/25 12:30 25 MLS/HR Ondansetron HCl 4 mg Q4HP PRN IV 02/17/25 04:30 02/18/25 11:05 4 MG Morphine Sulfate 2 mg Q4HPRN PRN IV 02/17/25 04:30 02/18/25 11:04 2 MG Sodium Chloride 1,000 ml @ 75 mls/hr [id number] IV 02/17/25 08:00 02/18/25 10:50 75 MLS/HR Ketorolac Tromethamine 15 mg Q6HPRN PRN IV 02/17/25 08:45 02/20/25 22:00 02/18/25 13:49 15 MG Potassium Chloride 100 ml @ 50 mls/hr Q2H IV 02/18/25 11:15 02/18/25 15:14 02/18/25 14:01 50 MLS/HR Enoxaparin Sodium 40 mg DAILY SC 02/19/25 10:00 Pantoprazole Sodium 40 mg DAILY IV 02/19/25 10:00 Ergocalciferol 50,000 unit Q7D PO 02/20/25 10:00 Examination Pt is lying on bed General Appearance: Alert, Oriented X3, Cooperative, Mild distress HEENT: Atraumatic, Mucous membranes moist/pink Respiratory: Clear to auscultation, Normal air movement, No added sounds Cardiovascular: Regular rate, Normal S1, Normal S2, No murmurs Abdominal/ : Active bowel sounds, Soft, abdomen mildly distended, surgical sites dry, tenderness present Extremities: No edema, Normal pulses, No tenderness/swelling Skin: No Significant rash, except past surgical scars Neuro: Normal speech, sensorimotor deficits none Psych/Mental Status: Mental status NL, Mood NL Nurse was there as cost estimating manager during examination laboratory and microbiology Laboratory Tests 02/18/25 06:35 Test 02/18/25 06:35 Range/Units Serum Glucose 74 74-106 mg/dL Labs and/or images reviewed: Labs reviewed by me, Image(s) reviewed by me Problem List/Assessment/Plan Problem List/Assessment/Plan Day 1 status-post laparoscopic appendectomy IV fluid normal saline Zosyn Dilaudid and ketorolac for pain management Metoclopramide and ondansetron for nausea Pantoprazole 40 mg IV daily Lovenox for DVT prophylaxis Keep incision clean and dry, monitor for signs of infection and discharge. Vitamin-D deficiency Oral Vitamin-D 12413 per week Hypokalemia Repleted Mild hepatomegaly Mild ascites Monitor LFTs Outpatient follow up with GI. GI prophylaxis: Pantoprazole DVT prophylaxis: Lovenox Diet: NPO, resume diet as per surgery recommendations Goals of care discussed with the patient for more than 27 minutes: Full code status Case discussed with Dr. Bartlett , patient and RN Plan discussed with: Other (RN) Date of Service: Feb 18, 2025 Billing Provider: CYNTHIA BARTLETT MD Common Visit Codes: [id number] INP/OBS CARE(HIGH) JOSSY TORRES Feb 18, 2025 14:10 CYNTHIA BARTLETT MD Feb 18, 2025 21:42
[2025-02-18 16:33] VITALS: BP 113/84; PULSE 90; RESP 18; TEMP 98.1; O2SAT 98
[2025-02-18 21:00] VITALS: BP 104/65; PULSE 88; RESP 16; TEMP 98; O2SAT 96
[2025-02-19] VITALS (7 sets, daily range): BP systolic 109–122; BP diastolic 72–87; PULSE 78–95; RESP 15–17; TEMP 97.4–99.1; O2SAT 94–98
[2025-02-19 08:06] LABS: Anion Gap 10 (5-15); Carbon Dioxide 22 mmol/L (20-31); Hematocrit 33.5 % (36.0-46.0); Hemoglobin 11.9 g/dL (12.2-16.2); Mean Corpuscular Hemoglobin 29.0 pg (28.0-32.0); Mean Corpuscular Volume 81.5 fL (80.0-100.0); Nucleated Red Blood Cells % 0.1 %; Potassium 3.7 mmol/L (3.5-5.1); Sodium 143 mmol/L (136-145)
[2025-02-19 08:08] LABS: Calcium 8.5 mg/dL (8.7-10.4); Chloride 111 mmol/L (98-107)
[2025-02-19 08:12] LABS: Glucose 87 mg/dL (74-106)
[2025-02-19 08:16] LABS: BUN/Creatinine Ratio 7.2 (10.0-20.0); Blood Urea Nitrogen < 5 mg/dL (9-23)
[2025-02-19] MEDS: ENOXAPARIN SOD 40 MG/0.4 ML SYRINGE SC SCH (09:58)
[2025-02-19] MEDS: PANTOPRAZOLE 40 MG/10 ML VIAL INJ IV SCH (09:58)
--- NOTE | 2025-02-19 10:32 | DVHPN2 ---
Subjective Date Seen: Feb 19, 2025 Post op day Post op day: 2 Patient reports: No new complaints Nursing reports: No new complaints General: Normal HNT: Normal Cardiovascular: Normal Respiratory: Normal Gastrointestinal: Abdominal Pain Genitourinary: Normal Musculoskeletal: Normal Neurological: Normal Objective Vitals Vital Sign Date Time Temp Pulse Resp B/P (MAP) Pulse Ox O2 Delivery O2 Flow Rate FiO2 02/19/25 08:50 98.6 85 16 122/87 (99) 95 98.6 02/19/25 07:48 Room Air* 0 21 Total Intake and Output 02/18/25 02/18/25 02/19/25 15:00 23:00 07:00 Intake Total 1100 ml 980 ml Balance 1100 ml 980 ml Medications Current Medications Medications Dose Ordered Sig/Kamala Route Start Time Stop Time Status Last Admin Dose Admin Piperacillin Sod/ Tazobactam Sod 100 ml @ 25 mls/hr Q8H IV 02/17/25 05:00 02/19/25 05:28 25 MLS/HR Ondansetron HCl 4 mg Q4HP PRN IV 02/17/25 04:30 02/18/25 11:05 4 MG Morphine Sulfate 2 mg Q4HPRN PRN IV 02/17/25 04:30 02/18/25 16:45 2 MG Sodium Chloride 1,000 ml @ 75 mls/hr [id number] IV 02/17/25 08:00 02/19/25 00:00 75 MLS/HR Ketorolac Tromethamine 15 mg Q6HPRN PRN IV 02/17/25 08:45 02/20/25 22:00 02/19/25 09:28 15 MG Enoxaparin Sodium 40 mg DAILY SC 02/19/25 10:00 02/19/25 09:58 40 MG Pantoprazole Sodium 40 mg DAILY IV 02/19/25 10:00 02/19/25 09:58 40 MG Ergocalciferol 50,000 unit Q7D PO 02/20/25 10:00 General: Normal, Well developed Head/Eyes: Normal ENT: Normal Neck: Normal Lungs: Normal Cardiovascular: Normal Abdominal: Normal Musculoskeletal: Normal Extremities: Normal Skin: Normal Labs and Microbiology Laboratory Tests 02/19/25 06:38 Test 02/19/25 06:38 Range/Units Serum Glucose 87 74-106 mg/dL Ass/Plan Labs and/or images reviewed: Labs reviewed by me, Image(s) reviewed by me Problem List Sepsis secondary to appendicitis versus UTI Currently under empiric IV antibiotic (Zosyn) Required IV fluid resuscitation Ordered cultures (blood and urine). Acute abdominal pain due to appendicitis - s/p appendectomy Mild hepatomegaly Mild ascites ruled out. CT abdomen and pelvis: Appendicitis, reactive enteritis, mild hepatomegaly, mild ascites Symptomatic management was done by morphine and ondansetron. Currently under empiric IV antibiotic (Zosyn) Patient was kept NPO, required IV fluid resuscitation. epic cadence specialists consulted: Surgical candidate. Laparoscopy and laparoscopic appendectomy successfully performed 02/17/2025 UTI Urinalysis positive for esterase and presents increased WBCs. Urine culture Currently under empiric IV antibiotic (Zosyn) GI prophylaxis: Pantoprazole DVT prophylaxis: Enoxaparin Diet: NPO, resume diet as per surgery recommendations Goals of care discussed with the patient for more than 27 minutes: Full code status Case discussed with Dr. Bartlett , patient and green marketing analyst/Plan 02/18/2025 reports vomiting last night after clear liquids abdomen soft , non distended, appropriately tender passing gas,no BM wounds clean dry and intact Plan: ambulate start with small sips of fluids continue IV antibiotics 02/19/2025 02/18/2025 complaints of abdominal pain( patient advised pain will not be completely gone until a few weeks) abdomen soft , non distended, appropriately tender passing gas,no BM wounds clean dry and intact Plan: patient to ambulate advance diet as tolerated continue IV antibiotics possible discharge tomorrow Prognosis: Good Plan discussed with Patient, Dr. Brito Visit Coding Surgery Date of Service if different f: Feb 19, 2025 Billing Provider: JAYSHREE BRITO MD Surgery Visit Codes: [id number] INP/OBS CARE(HIGH) JOJO WALDEN SAWMILL HAND Feb 19, 2025 10:32
--- NOTE | 2025-02-19 21:14 | DVHPNRES ---
Progress Note Date Seen: Feb 19, 2025 Resident Creating Document: JOSSY TORRES Medical Necessity Reason Pt with a Central, PICC or Fol: No Subjective Review of Systems 24-year-old female, day 3 status post appendectomy, with the patient is tolerating regular diet, however the patient has moderate pain at the surgical site. She is passing flatus. She denies any chest pain, shortness of breath, fever and any other complaints today. Objective vital signs Vital Sign Date Time Temp Pulse Resp B/P (MAP) Pulse Ox O2 Delivery O2 Flow Rate FiO2 02/19/25 16:23 97.4 84 17 113/85 (94) 97 97.4 02/19/25 07:48 Room Air* 0 21 Total Intake and Output 02/18/25 02/18/25 02/19/25 15:00 23:00 07:00 Intake Total 1100 ml 980 ml Balance 1100 ml 980 ml medications Current Medications Medications Dose Ordered Sig/Kamala Route Start Time Stop Time Status Last Admin Dose Admin Piperacillin Sod/ Tazobactam Sod 100 ml @ 25 mls/hr Q8H IV 02/17/25 05:00 02/19/25 12:31 25 MLS/HR Ondansetron HCl 4 mg Q4HP PRN IV 02/17/25 04:30 02/18/25 11:05 4 MG Morphine Sulfate 2 mg Q4HPRN PRN IV 02/17/25 04:30 02/18/25 16:45 2 MG Sodium Chloride 1,000 ml @ 75 mls/hr [id number] IV 02/17/25 08:00 02/19/25 13:22 75 MLS/HR Ketorolac Tromethamine 15 mg Q6HPRN PRN IV 02/17/25 08:45 02/20/25 22:00 02/19/25 15:37 15 MG Enoxaparin Sodium 40 mg DAILY SC 02/19/25 10:00 02/19/25 09:58 40 MG Pantoprazole Sodium 40 mg DAILY IV 02/19/25 10:00 02/19/25 09:58 40 MG Ergocalciferol 50,000 unit Q7D PO 02/20/25 10:00 Tramadol HCl 50 mg Q6HP PRN PO 02/19/25 15:30 02/19/25 20:26 50 MG Examination Pt is lying on bed General Appearance: Alert, Oriented X3, Cooperative, Mild distress HEENT: Atraumatic, Mucous membranes moist/pink Respiratory: Clear to auscultation, Normal air movement, No added sounds Cardiovascular: Regular rate, Normal S1, Normal S2, No murmurs Abdominal/ : Active bowel sounds, Soft, abdomen mildly distended, laparoscopic sites dry, tenderness present Extremities: No edema, Normal pulses, No tenderness/swelling Skin: No Significant rash, except past surgical scars Neuro: Normal speech, sensorimotor deficits none Psych/Mental Status: Mental status NL, Mood NL laboratory and microbiology Laboratory Tests 02/19/25 06:38 Test 02/19/25 06:38 Range/Units Serum Glucose 87 74-106 mg/dL Labs and/or images reviewed: Labs reviewed by me, Image(s) reviewed by me Problem List/Assessment/Plan Problem List/Assessment/Plan Sepsis secondary to appendicitis versus UTI Currently under empiric IV antibiotic (Zosyn) Required IV fluid resuscitation Ordered cultures (blood and urine). Acute appendicitis - s/p laparoscopic appendectomy Mild hepatomegaly Mild ascites ruled out. CT abdomen and pelvis: Appendicitis, reactive enteritis, mild hepatomegaly, mild ascites Symptomatic management was done by morphine and ondansetron. Currently under empiric IV antibiotic (Zosyn) On regular diet, advance per water rights specialist and as tolerated Required IV fluid resuscitation. volunteer services specialist consulted: Surgical candidate. Laparoscopy appendectomy successfully performed 02/17/2025 Keep incision site clean and dry Avoid morphine, the patient is tolerating food and the pain improved possible discharge tomorrow. UTI Urinalysis positive for esterase and presents increased WBCs. Urine culture Currently under empiric IV antibiotic (Zosyn) Vitamin D deficiency Replenished with 15196 U qweekly Hypokalemia Replenished GI prophylaxis: Pantoprazole DVT prophylaxis: Enoxaparin Diet: Regular diet Goals of care discussed with the patient for more than 27 minutes: Full code status Case discussed with Dr. Bartlett , patient and RN Plan discussed with: Patient, Other (RN) JOSSY TORRES RESIDENT Feb 19, 2025 21:14 NATASHA HONEYCUTT RESIDENT Feb 20, 2025 14:50
[2025-02-20 01:00] VITALS: BP 103/60; PULSE 68; RESP 17; TEMP 97.9; O2SAT 97
[2025-02-20 05:00] VITALS: BP 108/74; PULSE 60; RESP 16; TEMP 98; O2SAT 98
[2025-02-20 06:09] LABS: Hematocrit 34.1 % (36.0-46.0); Hemoglobin 11.9 g/dL (12.2-16.2); Mean Corpuscular Hemoglobin 28.7 pg (28.0-32.0); Mean Corpuscular Volume 81.7 fL (80.0-100.0); Nucleated Red Blood Cells % 0.1 %
[2025-02-20 06:21] LABS: Anion Gap 11 (5-15); Calcium 8.7 mg/dL (8.7-10.4); Carbon Dioxide 22 mmol/L (20-31); Chloride 106 mmol/L (98-107); Potassium 3.6 mmol/L (3.5-5.1); Sodium 139 mmol/L (136-145)
[2025-02-20 06:28] LABS: Glucose 84 mg/dL (74-106)
[2025-02-20 06:47] LABS: BUN/Creatinine Ratio 7.2 (10.0-20.0); Blood Urea Nitrogen < 5 mg/dL (9-23)
[2025-02-20 09:00] VITALS: BP 110/80; PULSE 70; RESP 16; TEMP 97.5; O2SAT 96
--- NOTE | 2025-02-20 10:53 | DVHPN2 ---
Progress Note Date Seen: Feb 20, 2025 Medical Necessity Reason Pt with a Central, PICC or Fol: No Objective vital signs Vital Sign Date Time Temp Pulse Resp B/P (MAP) Pulse Ox O2 Delivery O2 Flow Rate FiO2 02/20/25 09:00 97.5 70 16 110/80 (90) 96 97.5 02/19/25 20:00 Room Air* 0 21 Total Intake and Output 02/19/25 02/19/25 02/20/25 15:00 23:00 07:00 Intake Total 700 ml 825 ml Output Total 800 ml Balance -100 ml 825 ml medications Current Medications Medications Dose Ordered Sig/Kamala Route Start Time Stop Time Status Last Admin Dose Admin Piperacillin Sod/ Tazobactam Sod 100 ml @ 25 mls/hr Q8H IV 02/17/25 05:00 02/20/25 05:05 25 MLS/HR Ondansetron HCl 4 mg Q4HP PRN IV 02/17/25 04:30 02/18/25 11:05 4 MG Morphine Sulfate 2 mg Q4HPRN PRN IV 02/17/25 04:30 02/18/25 16:45 2 MG Sodium Chloride 1,000 ml @ 75 mls/hr [id number] IV 02/17/25 08:00 02/20/25 04:00 75 MLS/HR Ketorolac Tromethamine 15 mg Q6HPRN PRN IV 02/17/25 08:45 02/20/25 22:00 02/19/25 15:37 15 MG Enoxaparin Sodium 40 mg DAILY SC 02/19/25 10:00 02/19/25 09:58 40 MG Pantoprazole Sodium 40 mg DAILY IV 02/19/25 10:00 02/19/25 09:58 40 MG Ergocalciferol 50,000 unit Q7D PO 02/20/25 10:00 Tramadol HCl 50 mg Q6HP PRN PO 02/19/25 15:30 02/20/25 05:05 50 MG laboratory and microbiology Laboratory Tests 02/20/25 05:43 Test 02/20/25 05:43 Range/Units Serum Glucose 84 74-106 mg/dL Problem List/Assessment/Plan Problem List/Assessment/Plan 02/20/25 FEELS MUCH BETTER, WANTS TO GO HOME, NL BOWEL AND BLADDER FUNCTION, ABDOMEN SOFT WOUNDS CLEAN AND WELL APPROXIMATED OK TO DISCHARGE Plan discussed with: Patient JAYSHREE SOTO MD Feb 20, 2025 10:53
[2025-02-20 13:00] VITALS: BP 108/71; PULSE 74; RESP 18; TEMP 97.9; O2SAT 97
[2025-02-20] MEDS ORDERED: HYDR-4902 PO (13:13)
[2025-02-20] MEDS ORDERED: AUG875T PO (13:13)
[2025-02-20] MEDS: ERGOCALCIFEROL 50,000 UNIT(1.25MG) CAP PO SCH (14:31)
[2025-02-20 16:29] VITALS: BP 108/71; PULSE 74; RESP 18; TEMP 36.6; O2SAT 95
[2025-02-20 17:00] VITALS: BP 110/81; PULSE 60; RESP 18; TEMP 97.9; O2SAT 100
--- NOTE | 2025-02-20 19:05 | DVHDSRES ---
Discharge Summary Date of Admission Resident Creating Document: JUANITA JOHNSON RESIDENT Feb 17, 2025 at 04:16 Date of Discharge: Feb 20, 2025 Labs/Diagnostic Data: Laboratory Results Test 02/20/25 05:43 02/17/25 13:57 02/17/25 05:00 02/16/25 16:49 White Blood Count 5.2 10^3/uL (4.4-10.8) Red Blood Count 4.17 10^6/uL (4.0-5.20) Hemoglobin 11.9 g/dL (12.2-16.2) Hematocrit 34.1 % (36.0-46.0) Mean Corpuscular Volume 81.7 fL (80.0-100.0) Mean Corpuscular Hemoglobin 28.7 pg (28.0-32.0) Mean Corpuscular Hemoglobin Concent 35.1 g/dL (32.0-36.0) Red Cell Distribution Width 13.9 % (11.8-14.3) Platelet Count 341 10^3/uL (140-450) Mean Platelet Volume 7.2 fL (6.9-10.8) Neutrophils (%) (Auto) 36.9 % (37.0-80.0) Lymphocytes (%) (Auto) 44.0 % (10.0-50.0) Monocytes (%) (Auto) 8.2 % (0.0-12.0) Eosinophils (%) (Auto) 10.2 % (0.0-7.0) Basophils (%) (Auto) 0.7 % (0.0-2.0) Neutrophils # (Auto) 1.9 10 ^3/uL (1.6-8.6) Lymphocytes # (Auto) 2.3 10 ^3/uL (0.4-5.4) Monocytes # (Auto) 0.4 10 ^3/uL (0-1.3) Eosinophils # (Auto) 0.5 10 ^3/uL (0-0.8) Basophils # (Auto) 0 10 ^3/uL (0-0.2) Nucleated Red Blood Cells 0.1 % Sodium Level 139 mmol/L (136-145) Potassium Level 3.6 mmol/L (3.5-5.1) Chloride Level 106 mmol/L (98-107) Carbon Dioxide Level 22 mmol/L (20-31) Anion Gap 11 (5-15) Blood Urea Nitrogen < 5 mg/dL (9-23) Creatinine 0.69 mg/dL (0.550-1.02) Glomerular Filtration Rate Calc 123 mL/min (>90) BUN/Creatinine Ratio 7.2 (10.0-20.0) Serum Glucose 84 mg/dL (74-106) Calcium Level 8.7 mg/dL (8.7-10.4) Urine Color Yellow (Yellow) Urine Clarity Turbid (Clear) Urine pH 6.5 (5.0-9.0) Urine Specific [place] 1.041 (1.001-1.035) Urine Protein Trace (Negative) Urine Ketones Trace (Negative) Urine Blood 1+ /uL (Negative) Urine Nitrite Negative (Negative) Urine Bilirubin Negative (Negative) Urine Urobilinogen Normal mg/dL (Negative) Urine Leukocyte Esterase 2+ /uL (Negative) Urine RBC 6 /hpf (0 - 4) Urine Microscopic WBC 17 /HPF (0-5) Urine Squamous Epithelial Cells Many /hpf (<5) Urine Bacteria None seen /hpf (None Seen) Urine Glucose Normal mg/dL (Normal) Prothrombin Time 11.1 sec (9.3-11.8) Prothrombin Time INR 1.05 (0.9-1.15) Activated Partial Thromboplast Time 30.8 SEC (24.5-34.5) Vitamin B12 Level 590 pg/mL (211-911) Vitamin D 25-Hydroxy 27.8 ng/mL (30.0-100) Thyroid Stimulating Hormone (TSH) 0.82 uIU/mL (0.55-4.78) Magnesium Level 1.9 mg/dL (1.6-2.6) Total Bilirubin 0.4 mg/dL (0.2-1.0) Aspartate Amino Transferase (AST) 16 U/L (13-40) Alanine Aminotransferase (ALT) 17 U/L (7-40) Alkaline Phosphatase 64 U/L (46-116) Total Protein 7.3 g/dL (5.7-8.2) Albumin 4.6 g/dL (3.2-4.8) Lipase 34 U/L (12-53) Beta HCG, Quantitative 0.3 mIU/mL (1.5-4.2) Other Laboratory Tests 02/20/25 05:43 Brief Hx & Hospital Course: Rosie Vegas is a 24-year old female presented to the ER with right lower quadrant pain radiating to the umbilicus and left lower abdomen, associated with nausea, increased by movements, coughing and respiration. She reports having burning sensation during urination and frequency as well. She denies any chest pain, SOB, fever or any other complaints today. PMH: Denies PSH: Denies Family history: Non-contributory Smoking, alcohol, drugs: Never HOSPITAL COURSE: This is a 24-year-old female without past medical history admitted to hospital intractable abdominal pain due to acute appendicitis. Lab results showed white blood cell count high at 16.4. CT abdomen and pelvis: Appendicitis, reactive enteritis, mild hepatomegaly, mild ascites. Surgery consulted and appendectomy done 02/17/2025. During hospital stay, s/p surgery patient treated conservatively with IV antibiotic and IV fluid. Patient diet advanced gradually full liquid to regular diet and tolerate well. Today patient denies any fever, nausea, vomiting, diarrhea, constipation, chest pain, abdominal pain or any other acute distress. Labs reviewed leukocytosis resolved. During utilization, patient was treated both acute and chronic medical condition. Patient advised to continue her home medication, follow-up with surgery and PCP within 2 weeks after discharge, follow-up with outpatient clinic Friday morning 1 week after discharge from hospital. Patient is hypodermically stable for discharge. The patient has received maximum benefits from inpatient treatment. Time was given to answer patient/ parents questions and concerns in Layman terms. patient verbalized understanding and agree with treatment and follow-up. Patient was recommended to return to the ED if she experiences any worsening symptoms such as, but not limited to current symptoms. Continue current home medication. General Appearance: Alert, Oriented X3, Cooperative, Mild distress PHYSICAL EXAMINATION HEENT: Atraumatic, Mucous membranes moist/pink Respiratory: Clear to auscultation, Normal air movement, No added sounds Cardiovascular: Regular rate, Normal S1, Normal S2, No murmurs Abdominal/ : Active bowel sounds, Soft, abdomen mildly distended, laparoscopic sites dry, no edema or swelling Extremities: No edema, Normal pulses, No tenderness/swelling Skin: No Significant rash, except past surgical scars Neuro: Normal speech, sensorimotor deficits none Psych/Mental Status: Mental status NL, Mood NL Operations or Procedures ORDERING PHYSICIAN: MIKEY DUMONT MD PROCEDURE(s): ABPLIV - CT AB PEL WITH IV CON ONLY REASON: abd pain ORDER NUMBER(s): [id number], ACCESSION NUMBER(s): [id number] CLINICAL HISTORY: abd pain TECHNIQUE: CT of the abdomen and pelvis was performed without intravenous contrast. 100 mL Omnipaque 300 injected This exam was performed according to our departmental dose optimization program. Up-to-date CT equipment and radiation dose reduction techniques are utilized as appropriate. 6.11 CTDI: 6.11 DLP: 345.22 WID: COMPARISON: None FINDINGS: Lower Thorax: Unremarkable. Liver and Biliary system: Mild hepatomegaly measuring 18 cm craniocaudal. Otherwise unremarkable. Spleen: Unremarkable. Adrenal Glands and Kidneys: Unremarkable. Pancreas and Retroperitoneum: Unremarkable. Aorta and Major Vessels: Unremarkable. Bowel, Mesentery and Peritoneal space: Normal caliber small and large bowel. There is a hyperemic and mildly dilated appendix on series 2, image 63 and series 601, image 37. Scattered fluid containing predominantly distal small bowel loops. There is no free air or fluid collection. There is mild enhancement of fluid-filled pelvic small bowel loops. Mild ascites predominantly in the pelvis. Pelvis: Unremarkable. Abdominal wall and Osseous Structures: No destructive osseous lesion. IMPRESSION: 1. Thickened and hyperemic appendix which is mildly dilated suggesting acute appendicitis. 2. Scattered fluid-filled and mild enhancement of pelvic small bowel loops which may be reactive or related to enteritis. 3. Mild ascites. 4. Mild hepatomegaly. ATED BY: LENARD CLARKE MD DICTATED DATE/TIME: 02/17/25 0008 ORDERING PHYSICIAN: EARL SHANNONCNSandor PROCEDURE(s): CXR1 - CHEST XRAY 1 VIEW REASON: preop ORDER NUMBER(s): [id number], ACCESSION NUMBER(s): [id number] CHEST RADIOGRAPH Indication: Pain Technique: Single frontal view of the chest was obtained COMPARISON: None FINDINGS: Lines and Tubes: None Lungs: Clear Pleura: No effusion. No pneumothorax. Cardiomediastinal contours: Unremarkable Bones: Unremarkable IMPRESSION: No acute disease. ATED BY: BRONSON THACKER MD DICTATED DATE/TIME: 02/17/25 0501 Condition at Discharge: Stable Final Diagnosis/Problems List Acute appendicitis s/p laparoscopic appendectomy Sepsis secondary to appendicitis Acute abdomen due to acute appendicitis Mild hepatomegaly Mild ascites Urinary tract infection Vitamin-D deficiency Hypokalemia Discharge Disposition: Home Discharge Instruct/Medications Diet: Regular Activity: No Restrictions, As Tolerated Follow Up/Referral: Follow-up with PCP within 2 weeks after discharge Follow-up with surgery outpatient within 1 week after discharge Follow-up with continue to clinic Friday within week after discharge Scheduled Amoxicillin & Pot Clavulanate (Augmentin Tablet), 875 MG PO BID Scheduled PRN Hydrocodone-Acetaminophen (Hydrocodone Bitartrate/AC 5-325 mg), 1 TAB PO Q8HP PRN Discharge Statement: "Patient was advised to return to the ER or call 911 if any headaches, dizziness, shortness of breath, chest pain, abdominal pain, bleeding, fevers, or worsening of medical condition. Patient was counseled about treatment plan, medications, possible side effects, patientverbalized understanding. All questions were answered to the best of my ability. This discharge took greater then 30 minutes in planning, reviewing documentation, counseling the patient, and discussing with other team members." ASSESSMENT ASSESSMENT Assessment Acute appendicitis s/p laparoscopic appendectomy. JUANITA JOHNSON RESIDENT Feb 20, 2025 19:05
== END 2025-02-20 18:40 | disposition home or self-care (01) | DRG 710 ==
LOC: ER 16:17 → OVERFLOW 02-17 04:16 → UNDODEPER 02-17 04:28 → CENTRAL 02-17 16:42
PROVIDERS: ADMIT Student in an Organized Health Care Education/Training Program; ATTEND Student in an Organized Health Care Education/Training Program
PROC: 0DTJ4ZZ Resection of Appendix, Percutaneous Endoscopic Approach (ICD-10-PCS; principal; 2025-02-17 14:41)
DX: A41.9 Sepsis, unspecified organism (principal); R18.8 Other ascites; R16.0 Hepatomegaly, not elsewhere classified; K35.80 Unspecified acute appendicitis; E55.9 Vitamin D deficiency, unspecified; E87.6 Hypokalemia; N39.0 Urinary tract infection, site not specified; K52.9 Noninfective gastroenteritis and colitis, unspecified; Z87.891 Personal history of nicotine dependence
CPT/HCPCS: 36415; 71045; 74177; 80048; 80053; 81001; 82306; 82607; 83690; 83735; 84443; 84702; 85025; 85610; 85730; 86850; 86900; 86901; 87040; 87086; 96361; 96374; 96375; G0378; J1885; J2003; J2250; J2405; J2470; J2543; J2704; J3480; J3490